=== PATIENT | male | born 1995 | race African-American/Black ===

== ENCOUNTER 2025-04-23 11:13 | Emergency (ER) | payer OTHER ==
[~2025-04-23] VITALS: Ht 172.7 cm; Wt 65.0 kg
[2025-04-23 11:30] VITALS: TEMP 36.9; O2SAT 99
[2025-04-23] MEDS: IBUPROFEN 800MG TABLET PO ONE (11:45)
[2025-04-23] MEDS ORDERED: IBUP-2029 MT (12:10)
[2025-04-23 12:54] VITALS: BP 123/78; PULSE 80; RESP 16; O2SAT 100
== END 2025-04-23 13:00 | disposition home or self-care (01) ==
LOC: ER 11:13
DX: S63.614A Unspecified sprain of right ring finger, initial encounter (principal); Y08.89XA Assault by other specified means, initial encounter; Y93.89 Activity, other specified; Y92.89 Other specified places as the place of occurrence of the external cause; Y99.8 Other external cause status
CPT/HCPCS: 29130; 73130; 73140; 99284